=== PATIENT | female | born 1965 | race American Indian/Alaskan Native ===

== ENCOUNTER 2018-04-29 20:17 | Emergency (ER) | payer SELFPAY ==
[2018-04-29] MEDS ORDERED: MOTRIN ONE (23:55)
[2018-04-29] MEDS ORDERED: MOTRIN PO ONE (23:57)
[2018-04-30] MEDS ORDERED: CLEOCIN IM ONE (00:07)
--- NOTE | 2018-04-30 00:19 | Emergency Department Report ---
ED ENT HPI - General Chief complaint: Dental/Oral Stated complaint: TOOTHACHE Time Seen by Provider: 04/29/18 23:57 Source: patient Mode of arrival: Ambulatory Limitations: No Limitations - History of Present Illness Initial comments: This is a 52-year-old female nontoxic, well nourished in appearance, no acute signs of distress presents to the ED with c/o of left upper toothache years. Patient denies following up with a dentist. Patient denies any radiation of pain. Patient describes toothache as aching level of 8 out of 10. Patient denies any facial swelling. Patient denies any numbness, tingling, fever, chills, headache, stiff neck, abdominal pain, chest pain, shortness of breath. Patient denies any drug allergies or significant past medical history. MD complaint: tooth pain -: year(s) Location: tooth # 1 - pain here Severity scale (0 -10): 8 Quality: aching Consistency: constant Improves with: none Worsens with: none Context- Dental: history of dental caries, poor dental care Associated Symptoms: gum swelling, toothache. denies: fever, cough, pain with swallowing, sore throat, tinnitus, hearing loss, discharge from ear, rhinorrhea - Related Data Previous Rx's Medication Instructions Recorded Last Taken Type Fluticasone Propionate [Flonase] 2 sprays NS QDAY #1 spray 02/25/14 Unknown Rx Carvedilol [Coreg] 6.25 mg PO BID #60 tablet 01/29/15 Unknown Rx Ciprofloxacin HCl [Cipro] 250 mg PO BID #6 tablet 01/29/15 Unknown Rx Lisinopril [Zestril TAB] 10 mg PO BID #60 tablet 01/29/15 Unknown Rx Saccharomyces Boulardii [Florastor] 250 mg PO BID #14 capsule 01/29/15 Unknown Rx Acetaminophen/Codeine [Tylenol 1 tab PO Q6H PRN #12 tab 04/30/18 Unknown Rx /Codeine # 3 tab] Clindamycin [Clindamycin CAP] 300 mg PO Q8H #21 cap 04/30/18 Unknown Rx Ibuprofen [Motrin] 600 mg PO Q8H PRN #30 tablet 04/30/18 Unknown Rx Allergies Allergy/AdvReac Type Severity Reaction Status Date / Time iodine Allergy Shortness Verified 04/29/18 20:28 of Breath nuts Allergy Shortness Uncoded 02/25/14 17:44 of Breath seafood Allergy Shortness Uncoded 02/25/14 17:44 of Breath ED Dental HPI - General Chief complaint: Dental/Oral Stated complaint: TOOTHACHE Time Seen by Provider: 04/29/18 23:57 Source: patient Mode of arrival: Ambulatory Limitations: No Limitations - Related Data Previous Rx's Medication Instructions Recorded Last Taken Type Fluticasone Propionate [Flonase] 2 sprays NS QDAY #1 spray 02/25/14 Unknown Rx Carvedilol [Coreg] 6.25 mg PO BID #60 tablet 01/29/15 Unknown Rx Ciprofloxacin HCl [Cipro] 250 mg PO BID #6 tablet 01/29/15 Unknown Rx Lisinopril [Zestril TAB] 10 mg PO BID #60 tablet 01/29/15 Unknown Rx Saccharomyces Boulardii [Florastor] 250 mg PO BID #14 capsule 01/29/15 Unknown Rx Acetaminophen/Codeine [Tylenol 1 tab PO Q6H PRN #12 tab 04/30/18 Unknown Rx /Codeine # 3 tab] Clindamycin [Clindamycin CAP] 300 mg PO Q8H #21 cap 04/30/18 Unknown Rx Ibuprofen [Motrin] 600 mg PO Q8H PRN #30 tablet 04/30/18 Unknown Rx Allergies Allergy/AdvReac Type Severity Reaction Status Date / Time iodine Allergy Shortness Verified 04/29/18 20:28 of Breath nuts Allergy Shortness Uncoded 02/25/14 17:44 of Breath seafood Allergy Shortness Uncoded 02/25/14 17:44 of Breath ED Review of Systems ROS: Stated complaint: TOOTHACHE Other details as noted in HPI Constitutional: fever. denies: chills Eyes: denies: eye pain, eye discharge, vision change ENT: dental pain. denies: ear pain, throat pain Respiratory: denies: cough, shortness of breath, wheezing Cardiovascular: denies: chest pain, palpitations Endocrine: no symptoms reported Gastrointestinal: denies: abdominal pain, nausea, diarrhea Genitourinary: denies: urgency, dysuria, discharge Musculoskeletal: denies: back pain, joint swelling, arthralgia Skin: denies: rash, lesions Neurological: denies: headache, weakness, paresthesias Psychiatric: denies: anxiety, depression Hematological/Lymphatic: denies: easy bleeding, easy bruising ED Past Medical Hx - Past Medical History Previous Medical History?: Yes Hx Hypertension: Yes - Surgical History Past Surgical History?: No - Social History Smoking Status: Never Smoker Substance Use Type: Alcohol - Medications Home Medications: Home Medications Medication Instructions Recorded Confirmed Last Taken Type Fluticasone Propionate [Flonase] 2 sprays NS QDAY #1 spray 02/25/14 01/28/15 Unknown Rx Carvedilol [Coreg] 6.25 mg PO BID #60 tablet 01/29/15 Unknown Rx Ciprofloxacin HCl [Cipro] 250 mg PO BID #6 tablet 01/29/15 Unknown Rx Lisinopril [Zestril TAB] 10 mg PO BID #60 tablet 01/29/15 Unknown Rx Saccharomyces Boulardii [Florastor] 250 mg PO BID #14 capsule 01/29/15 Unknown Rx Acetaminophen/Codeine [Tylenol 1 tab PO Q6H PRN #12 tab 04/30/18 Unknown Rx /Codeine # 3 tab] Clindamycin [Clindamycin CAP] 300 mg PO Q8H #21 cap 04/30/18 Unknown Rx Ibuprofen [Motrin] 600 mg PO Q8H PRN #30 tablet 04/30/18 Unknown Rx ED Physical Exam - General Limitations: No Limitations General appearance: alert, in no apparent distress - Head Head exam: Present: atraumatic, normocephalic - Eye Eye exam: Present: normal appearance Pupils: Present: normal accommodation - ENT ENT exam: Present: mucous membranes moist, TM's normal bilaterally, normal external ear exam - Expanded ENT Exam Expanded Ear exam: Present: normal external inspection Mouth exam: Present: normal external inspection, tongue normal. Absent: drooling, trismus, muffled voice, tongue elevation, laceration Teeth exam: Present: dental caries, fractured tooth #, dental tenderness #, gingival enlargement, other (no facial swelling. ) Throat exam: Positive: normal inspection, other (Uvula midline. No abscess or sweling noted.). Negative: tonsillar erythema, tonsillomegaly, tonsillar exudate, R peritonsillar mass, L peritonsillar mass - Neck Neck exam: Present: normal inspection, full ROM. Absent: tenderness, meningismus, lymphadenopathy - Respiratory Respiratory exam: Present: normal lung sounds bilaterally. Absent: respiratory distress - Cardiovascular Cardiovascular Exam: Present: regular rate, normal rhythm. Absent: systolic murmur, diastolic murmur, rubs, gallop - GI/Abdominal GI/Abdominal exam: Present: soft, normal bowel sounds - Extremities Exam Extremities exam: Present: normal inspection - Back Exam Back exam: Present: normal inspection - Neurological Exam Neurological exam: Present: alert, oriented X3 - Psychiatric Psychiatric exam: Present: normal affect, normal mood - Skin Skin exam: Present: warm, dry, intact, normal color. Absent: rash ED Course Vital Signs 04/29/18 04/29/18 04/30/18 20:16 20:28 00:01 Temperature 101.2 F H 101.2 F H Pulse Rate 114 H 114 H Respiratory 18 18 18 Rate Blood Pressure 152/90 152/90 O2 Sat by Pulse 98 98 Oximetry - Reevaluation(s) Reevaluation #1: 04/30/18 00:18 Patient is speaking in full sentences with no signs of distress noted. ED Medical Decision Making - Medical Decision Making This is a 52-year-old female that presents with gingivitis and dental caries. Patient is stable and was examined by me. There is no swelling to the face. I did give patient clindamycin 600 mg IM in the ED and patient is discharged with clindamycin. Patient also received Motrin in the ED for fever. Vitals signs stable prior to discharge. She had strict instructions to follow-up with oral maxillary surgeon in 24 hours or if symptoms would worsen to return to emergency room as was possible. Patient is discharged with Tylenol with Codeine , Peridex and Clinda. Patient was instructed not to operate any machinery when taking Ultram due to drowsiness. At time of discharge, the patient does not seem toxic or ill in appearance. No acute signs of distress noted. Patient agrees to discharge treatment plan of care. No further questions noted by the patient. Critical care attestation.: If time is entered above; I have spent that time in minutes in the direct care of this critically ill patient, excluding procedure time. ED Disposition Clinical Impression: Dental caries, Gingivitis Disposition: DC- TO HOME OR SELFCARE Is pt being admited?: No Does the pt Need Aspirin: No Condition: Stable Instructions: Dental Caries (ED), Gingivitis (ED), Acetaminophen/Codeine (By mouth) Additional Instructions: Follow-up with a oral maxillary surgeon in 24 hours or if symptoms worsen and continue return to emergency room as soon as possible. [facility] [employer] Address: [facility] [address], [place] [address] Hours: Thursday 7APM Thursday Closed Thursday Closed Thursday 8AM1PM, 25PM Thursday 8AM1PM, 25PM Thursday (05 of May) 8AM1PM, 25PM Hours might differ 8AM1PM, 25PM Prescriptions: Acetaminophen/Codeine [Tylenol /Codeine # 3 tab] 1 tab PO Q6H PRN #12 tab PRN Reason: Pain , Severe (7-10) Clindamycin [Clindamycin CAP] 300 mg PO Q8H #21 cap Ibuprofen [Motrin] 600 mg PO Q8H PRN #30 tablet PRN Reason: Pain Referrals: CHOLO MAE MD [Primary Care Provider] - 3-5 Days PRIMARY CARE, [Referring] - 3-[address] [facility] [Outside] - 3-5 Days Forms: Work/School Release Form(ED)
[2018-04-30 01:46] VITALS: BP 144/78
== END 2018-04-30 02:13 | disposition home or self-care (01) ==
LOC: ED 20:17
DX: K02.9 Dental caries, unspecified (principal); K05.10 Chronic gingivitis, plaque induced; I10 Essential (primary) hypertension; Z91.041 Radiographic dye allergy status; Z91.018 Allergy to other foods; Z91.013 Allergy to seafood
CPT/HCPCS: 96372; 99282

== ENCOUNTER 2019-12-09 08:53 | Emergency (ER) | payer SELFPAY ==
[2019-12-09 09:36] LABS: Basophils # (Auto) 0.1 K/mm3 (0.0-0.1); Eosinophils # (Auto) 0.2 K/mm3 (0.0-0.4); Eosinophils % (Auto) 3.3 % (0.0-4.3); Hematocrit 38.3 % (30.3-42.9); Hemoglobin 13.1 gm/dl (10.1-14.3); Lymphocytes # (Auto) 2.9 K/mm3 (1.2-5.4); Lymphocytes % (Auto) 44.1 % (13.4-35.0); Mean Corpuscular HGB Conc 34 % (30-34); Mean Corpuscular Volume 86 fl (79-97); Monocytes # (Auto) 0.4 K/mm3 (0.0-0.8); Monocytes % (Auto) 6.2 % (0.0-7.3); Platelet Count 380 K/mm3 (140-440); Red Blood Count 4.43 M/mm3 (3.65-5.03); Red Cell Distribution Width 13.2 % (13.2-15.2)
[2019-12-09 09:48] LABS: Bilirubin,Urine NEG (Negative); Blood,Urine SM (Negative); Color,Urine Yellow (Yellow); Urobilinogen,Urine < 2.0 mg/dL (<2.0)
[2019-12-09 09:49] LABS: WBC,Urine > 182.0 /HPF (0.0-6.0)
[2019-12-09 10:01] LABS: Alanine Aminotransferase 26 units/L (7-56); Albumin 4.2 g/dL (3.9-5); BUN/Creatinine Ratio 20; Blood Urea Nitrogen 12 mg/dL (7-17); Calcium 9.6 mg/dL (8.4-10.2); Hemolysis Index 6
[2019-12-09 10:04] VITALS: BP 159/85
--- NOTE | 2019-12-09 10:40 | Emergency Department Report ---
ED Female HPI - General Chief complaint: Abdominal Pain Stated complaint: UTI Time Seen by Provider: 12/09/19 10:21 Source: patient Mode of arrival: Ambulatory Limitations: No Limitations - History of Present Illness MD Complaint: dysuria -: days(s) (5-6) Location: suprapubic Radiation: suprapubic Severity: mild Quality: dull (pressure) Worsens with: urination Are you Now?: No Associated Symptoms: dysuria, other (increased urinary urgency production) - Related Data Sexually active: No Previous Rx's Medication Instructions Recorded Last Taken Type Fluticasone Propionate [Flonase] 2 sprays NS QDAY #1 spray 02/25/14 Unknown Rx Ciprofloxacin HCl [Cipro] 250 mg PO BID #6 tablet 01/29/15 Unknown Rx Saccharomyces Boulardii [Florastor] 250 mg PO BID #14 capsule 01/29/15 Unknown Rx carvediloL [Coreg] 6.25 mg PO BID #60 tablet 01/29/15 Unknown Rx lisinopriL [Zestril TAB] 10 mg PO BID #60 tablet 01/29/15 Unknown Rx Acetaminophen/Codeine [Tylenol 1 tab PO Q6H PRN #12 tab 04/30/18 Unknown Rx /Codeine # 3 tab] Amoxicillin 500 mg PO TID 10 Days #30 capsule 04/30/18 Unknown Rx Clindamycin [Clindamycin CAP] 300 mg PO Q8H #21 cap 04/30/18 Unknown Rx Ibuprofen [Motrin] 600 mg PO Q8H PRN #30 tablet 04/30/18 Unknown Rx Sulfamethoxazole/Trimethoprim 1 each PO BID #14 tablet 12/09/19 Unknown Rx [Bactrim DS TAB] Allergies Allergy/AdvReac Type Severity Reaction Status Date / Time iodine Allergy Shortness Verified 04/29/18 20:28 of Breath nuts Allergy Shortness Uncoded 02/25/14 17:44 of Breath seafood Allergy Shortness Uncoded 02/25/14 17:44 of Breath ED Review of Systems ROS: Stated complaint: UTI Other details as noted in HPI Comment: All other systems reviewed and negative ED Past Medical Hx - Past Medical History Previous Medical History?: Yes Hx Hypertension: Yes - Surgical History Past Surgical History?: No - Social History Smoking Status: Unknown if ever smoked Substance Use Type: None - Medications Home Medications: Home Medications Medication Instructions Recorded Confirmed Last Taken Type Fluticasone Propionate [Flonase] 2 sprays NS QDAY #1 spray 02/25/14 01/28/15 Unknown Rx Ciprofloxacin HCl [Cipro] 250 mg PO BID #6 tablet 01/29/15 Unknown Rx Saccharomyces Boulardii [Florastor] 250 mg PO BID #14 capsule 01/29/15 Unknown Rx carvediloL [Coreg] 6.25 mg PO BID #60 tablet 01/29/15 Unknown Rx lisinopriL [Zestril TAB] 10 mg PO BID #60 tablet 01/29/15 Unknown Rx Acetaminophen/Codeine [Tylenol 1 tab PO Q6H PRN #12 tab 04/30/18 Unknown Rx /Codeine # 3 tab] Amoxicillin 500 mg PO TID 10 Days #30 capsule 04/30/18 Unknown Rx Clindamycin [Clindamycin CAP] 300 mg PO Q8H #21 cap 04/30/18 Unknown Rx Ibuprofen [Motrin] 600 mg PO Q8H PRN #30 tablet 04/30/18 Unknown Rx Sulfamethoxazole/Trimethoprim 1 each PO BID #14 tablet 12/09/19 Unknown Rx [Bactrim DS TAB] ED Physical Exam - General Limitations: No Limitations General appearance: alert, in no apparent distress - Head Head exam: Present: atraumatic, normocephalic - Eye Eye exam: Present: normal appearance - ENT ENT exam: Present: mucous membranes moist - Neck Neck exam: Present: normal inspection - Respiratory Respiratory exam: Present: normal lung sounds bilaterally. Absent: respiratory distress - Cardiovascular Cardiovascular Exam: Present: regular rate, normal rhythm. Absent: systolic murmur, diastolic murmur, rubs, gallop - GI/Abdominal GI/Abdominal exam: Present: soft, normal bowel sounds - Extremities Exam Extremities exam: Present: normal inspection - Back Exam Back exam: Present: normal inspection - Neurological Exam Neurological exam: Present: alert, oriented X3 - Psychiatric Psychiatric exam: Present: normal affect, normal mood - Skin Skin exam: Present: warm, dry, intact, normal color. Absent: rash ED Course Vital Signs 12/09/19 12/09/19 09:00 10:01 Temperature 97.7 F Pulse Rate 96 H 91 H Respiratory 16 16 Rate Blood Pressure 146/82 159/85 Blood Pressure 159/85 [Right] O2 Sat by Pulse 98 100 Oximetry ED Medical Decision Making - Lab Data Result diagrams: 12/09/19 09:18 12/09/19 09:18 - Medical Decision Making This 54 y/o female patient presents with symptoms consistent with acute uncomplicated cystitis. No systemic symptoms. Not septic. Well appearing. Low suspicion for acute pyelonephritis given lack of fever, CVAT, or systemic features. Low suspicion for kidney stone or infected stone. ; not consistent with , including ectopic. No indication for labs or imaging at this time. Plan: UA, UCx, antibiotics Critical care attestation.: If time is entered above; I have spent that time in minutes in the direct care of this critically ill patient, excluding procedure time. ED Disposition Clinical Impression: UTI (urinary tract infection) Disposition: DC-01 TO HOME OR SELFCARE Is pt being admited?: No Does the pt Need Aspirin: No Condition: Stable Instructions: Abdominal Pain (ED), Urinary Tract Infection in Women (ED), Dysuria (ED) Prescriptions: Sulfamethoxazole/Trimethoprim [Bactrim DS TAB] 1 each PO BID #14 tablet Referrals: PRIMARY CARE [Primary Care Provider] - 3-5 Days [facility] [Provider Group] - 3-5 Days
== END 2019-12-09 10:57 | disposition home or self-care (01) ==
LOC: ED 08:53
DX: N39.0 Urinary tract infection, site not specified (principal); I10 Essential (primary) hypertension
CPT/HCPCS: 36415; 80053; 81001; 85025; 99283

== ENCOUNTER 2020-07-15 08:51 | Emergency (ER) | payer SELFPAY ==
[2020-07-15 10:03] VITALS: BP 107/83
--- NOTE | 2020-07-15 10:08 | Emergency Department Report ---
ED Recheck HPI - General Chief Complaint: Medical Clearance Stated Complaint: HEADACHE, BP HIGH Time Seen by Provider: 07/15/20 09:08 Source: patient Mode of arrival: Ambulatory Limitations: No Limitations - History of Present Illness Initial Comments: This is a 55-year-old female nontoxic, well nourished in appearance, no acute signs of distress presents to the ED for blood pressure medication refill. Patient stated that this morning she woke up and had a slight headache and took her blood pressure that was elevated. Patient stated currently headache has resolved. Patient stated that she takes lisinopril/HCTZ 2025 milligrams and has been out of it for the past couple days. Patient denies any head trauma. Patient denies any visual changes. Patient denies any symptoms of headache. Patient denies any numbness, tingling, fever, chills, nausea, vomiting, chest pain, shortness of breath, stiff neck. Patient denies facial drooping or one s ided weakness. Patient denies any radiation of pain. Patient denies any allergies. -: days(s) Returns Today for: request for prescription Symptoms Since Prior Visit: no new symptoms, improved Associated Symptoms: none. denies: fever, chills, chest pain, shortness of breath, rash, malaise, [place], abdominal pain - Related Data Previous Rx's Medication Instructions Recorded Last Taken Type Fluticasone Propionate [Flonase] 2 sprays NS QDAY #1 spray 02/25/14 Unknown Rx Ciprofloxacin HCl [Cipro] 250 mg PO BID #6 tablet 01/29/15 Unknown Rx Saccharomyces Boulardii [Florastor] 250 mg PO BID #14 capsule 01/29/15 Unknown Rx carvediloL [Coreg] 6.25 mg PO BID #60 tablet 01/29/15 Unknown Rx lisinopriL [Zestril TAB] 10 mg PO BID #60 tablet 01/29/15 Unknown Rx Acetaminophen/Codeine [Tylenol 1 tab PO Q6H PRN #12 tab 04/30/18 Unknown Rx /Codeine # 3 tab] Amoxicillin 500 mg PO TID 10 Days #30 capsule 04/30/18 Unknown Rx Clindamycin [Clindamycin CAP] 300 mg PO Q8H #21 cap 04/30/18 Unknown Rx Ibuprofen [Motrin] 600 mg PO Q8H PRN #30 tablet 04/30/18 Unknown Rx Sulfamethoxazole/Trimethoprim 1 each PO BID #14 tablet 12/09/19 Unknown Rx [Bactrim DS TAB] Lisinopril/Hydrochlorothiazide 1 tab PO QDAY #30 tab 07/15/20 Unknown Rx [Zestoretic 20-25 mg] Allergies Allergy/AdvReac Type Severity Reaction Status Date / Time iodine Allergy Shortness Verified 04/29/18 20:28 of Breath nuts Allergy Shortness Uncoded 02/25/14 17:44 of Breath seafood Allergy Shortness Uncoded 02/25/14 17:44 of Breath ED Review of Systems ROS: Stated complaint: HEADACHE, BP HIGH Other details as noted in HPI Constitutional: denies: chills, fever Eyes: denies: eye pain, eye discharge, vision change ENT: denies: ear pain, throat pain Respiratory: denies: cough, shortness of breath, wheezing Cardiovascular: denies: chest pain, palpitations Endocrine: no symptoms reported Gastrointestinal: denies: abdominal pain, nausea, diarrhea Genitourinary: denies: urgency, dysuria, discharge Musculoskeletal: denies: back pain, joint swelling, arthralgia Skin: denies: rash, lesions Neurological: denies: headache, weakness, paresthesias Psychiatric: denies: anxiety, depression Hematological/Lymphatic: denies: easy bleeding, easy bruising ED Past Medical Hx - Past Medical History Previous Medical History?: Yes Hx Hypertension: Yes - Surgical History Past Surgical History?: No - Social History Smoking Status: Unknown if ever smoked Substance Use Type: None - Medications Home Medications: Home Medications Medication Instructions Recorded Confirmed Last Taken Type Fluticasone Propionate [Flonase] 2 sprays NS QDAY #1 spray 02/25/14 01/28/15 Unknown Rx Ciprofloxacin HCl [Cipro] 250 mg PO BID #6 tablet 01/29/15 Unknown Rx Saccharomyces Boulardii [Florastor] 250 mg PO BID #14 capsule 01/29/15 Unknown Rx carvediloL [Coreg] 6.25 mg PO BID #60 tablet 01/29/15 Unknown Rx lisinopriL [Zestril TAB] 10 mg PO BID #60 tablet 01/29/15 Unknown Rx Acetaminophen/Codeine [Tylenol 1 tab PO Q6H PRN #12 tab 04/30/18 Unknown Rx /Codeine # 3 tab] Amoxicillin 500 mg PO TID 10 Days #30 capsule 04/30/18 Unknown Rx Clindamycin [Clindamycin CAP] 300 mg PO Q8H #21 cap 04/30/18 Unknown Rx Ibuprofen [Motrin] 600 mg PO Q8H PRN #30 tablet 04/30/18 Unknown Rx Sulfamethoxazole/Trimethoprim 1 each PO BID #14 tablet 12/09/19 Unknown Rx [Bactrim DS TAB] Lisinopril/Hydrochlorothiazide 1 tab PO QDAY #30 tab 07/15/20 Unknown Rx [Zestoretic 20-25 mg] ED Physical Exam - General Limitations: No Limitations General appearance: alert, in no apparent distress - Head Head exam: Present: atraumatic, normocephalic - Eye Eye exam: Present: normal appearance, PERRL, EOMI - Neck Neck exam: Present: normal inspection, full ROM. Absent: tenderness, meningismus, lymphadenopathy - Respiratory Respiratory exam: Present: normal lung sounds bilaterally. Absent: respiratory distress, wheezes, rales, rhonchi, stridor, chest wall tenderness, accessory muscle use, decreased breath sounds, prolonged expiratory - Cardiovascular Cardiovascular Exam: Present: regular rate, normal rhythm, normal heart sounds. Absent: bradycardia, tachycardia, irregular rhythm, systolic murmur, diastolic murmur, rubs, gallop - Extremities Exam Extremities exam: Present: normal inspection, full ROM - Back Exam Back exam: Present: normal inspection, full ROM. Absent: tenderness, CVA tenderness (R), CVA tenderness (L), muscle spasm, paraspinal tenderness, vertebral tenderness, rash noted - Neurological Exam Neurological exam: Present: alert, oriented X3, normal gait - Expanded Neurological Exam Expanded Patient oriented to: Present: person, place, time Cranial nerves: EOM's Intact: Normal, Facial Sensation: Normal Cerebellar function: Finger to Nose: Normal Upper motor neuron: Pronator Drift: Normal, Sensory Extinction: Normal Motor strength exam: RUE: 5, LUE: 5, RLE: 5, LLE: 5 Best Eye Response (Ceci): (4) open spontaneously Best Motor Response ([place]): (6) obeys commands Best Verbal Response (Ceci): (5) oriented [place] Total: 15 - Psychiatric Psychiatric exam: Present: normal affect, normal mood - Skin Skin exam: Present: warm, dry, intact, normal color. Absent: rash ED Course Vital Signs 07/15/20 10:02 Temperature 98.3 F Pulse Rate 92 H Respiratory 20 Rate Blood Pressure 107/83 [Right] O2 Sat by Pulse 100 Oximetry - Reevaluation(s) Reevaluation #1: 07/15/20 10:06 Patient is speaking in full sentences with no signs of distress noted. ED Recheck MDM - Medical Decision Making 55-year female that presents with blood pressure medication refill. Patient is stable and was examined by me. Vital signs are stable. Patient is neurologically stable. Patient was instructed to follow-up with a primary care doctor in 3-5 days or if symptoms worsen and continue return to emergency room as soon as possible. At time of discharge, the patient does not seem toxic or ill in appearance. No acute signs of distress noted. Patient agrees to discharge treatment plan of care. No further questions noted by the patient. Critical care attestation.: If time is entered above; I have spent that time in minutes in the direct care of this critically ill patient, excluding procedure time. ED Disposition Clinical Impression: Encounter for medication refill Disposition: DC-01 TO HOME OR SELFCARE Is pt being admited?: No Does the pt Need Aspirin: No Condition: Stable Instructions: Chronic Hypertension (ED) Additional Instructions: Follow-up with a primary care doctor in 3-5 days or if symptoms worsen and continue return to emergency room as soon as possible. Prescriptions: Lisinopril/Hydrochlorothiazide [Zestoretic 20-25 mg] 1 tab PO QDAY #30 tab Referrals: ELGIN POTTER MD [Primary Care Provider] - 3-5 Days YUE HOWARD MD [Staff Physician] - 3-5 Days Time of Disposition: 10:08
== END 2020-07-15 10:08 | disposition home or self-care (01) ==
LOC: ED 08:51
DX: R51 Headache (principal); I10 Essential (primary) hypertension; Z79.1 Long term (current) use of non-steroidal anti-inflammatories (NSAID); Z79.2 Long term (current) use of antibiotics; Z79.899 Other long term (current) drug therapy; Z91.018 Allergy to other foods; Z91.013 Allergy to seafood; Z88.8 Allergy status to other drugs, medicaments and biological substances
CPT/HCPCS: 99282

== ENCOUNTER 2020-09-03 09:17 | Emergency (ER) | payer SELFPAY ==
[2020-09-03 10:35] VITALS: BP 171/87
--- NOTE | 2020-09-03 10:49 | Emergency Department Report ---
ED General Adult HPI - General Chief complaint: Headache Stated complaint: HEADACHE/NO BP MEDS Time Seen by Provider: 09/03/20 10:25 Source: patient Mode of arrival: Ambulatory Limitations: No Limitations - History of Present Illness Initial comments: 55-year-old female, history of hypertension, presents to ED with headache. Patient states she ran out of her BP meds 1 week ago. States she is here visiting family from out of town. Patient states she awoke with a headache, took 2 Tylenol, now headache is resolved. Patient is requesting medication refill. She denies any chest pain, shortness of breath, dizziness, neuro deficits. -: This morning Location: head Quality: aching Consistency: now resolved Improves with: medication (tylenol) Worsens with: none Associated Symptoms: headaches. denies: chest pain, nausea/vomiting, shortness of breath - Related Data Previous Rx's Medication Instructions Recorded Last Taken Type Fluticasone Propionate [Flonase] 2 sprays NS QDAY #1 spray 02/25/14 Unknown Rx Ciprofloxacin HCl [Cipro] 250 mg PO BID #6 tablet 01/29/15 Unknown Rx Saccharomyces Boulardii [Florastor] 250 mg PO BID #14 capsule 01/29/15 Unknown Rx carvediloL [Coreg] 6.25 mg PO BID #60 tablet 01/29/15 Unknown Rx lisinopriL [Zestril TAB] 10 mg PO BID #60 tablet 01/29/15 Unknown Rx Acetaminophen/Codeine [Tylenol 1 tab PO Q6H PRN #12 tab 04/30/18 Unknown Rx /Codeine # 3 tab] Amoxicillin 500 mg PO TID 10 Days #30 capsule 04/30/18 Unknown Rx Clindamycin [Clindamycin CAP] 300 mg PO Q8H #21 cap 04/30/18 Unknown Rx Ibuprofen [Motrin] 600 mg PO Q8H PRN #30 tablet 04/30/18 Unknown Rx Sulfamethoxazole/Trimethoprim 1 each PO BID #14 tablet 12/09/19 Unknown Rx [Bactrim DS TAB] Lisinopril/Hydrochlorothiazide 1 tab PO QDAY #30 tab 07/15/20 Unknown Rx [Zestoretic 20-25 mg] Lisinopril/Hydrochlorothiazide 1 tab PO QDAY #30 tab 09/03/20 Unknown Rx [Zestoretic 20-25 mg] Allergies Allergy/AdvReac Type Severity Reaction Status Date / Time iodine Allergy Shortness Verified 04/29/18 20:28 of Breath nuts Allergy Shortness Uncoded 02/25/14 17:44 of Breath seafood Allergy Shortness Uncoded 02/25/14 17:44 of Breath ED Review of Systems ROS: Stated complaint: HEADACHE/NO BP MEDS Other details as noted in HPI Comment: All other systems reviewed and negative Respiratory: denies: shortness of breath Cardiovascular: denies: chest pain Gastrointestinal: denies: nausea, vomiting Neurological: headache. denies: weakness, numbness ED Past Medical Hx - Past Medical History Previous Medical History?: Yes Hx Hypertension: Yes - Surgical History Past Surgical History?: No - Social History Smoking Status: Never Smoker - Medications Home Medications: Home Medications Medication Instructions Recorded Confirmed Last Taken Type Fluticasone Propionate [Flonase] 2 sprays NS QDAY #1 spray 02/25/14 01/28/15 Unknown Rx Ciprofloxacin HCl [Cipro] 250 mg PO BID #6 tablet 01/29/15 Unknown Rx Saccharomyces Boulardii [Florastor] 250 mg PO BID #14 capsule 01/29/15 Unknown Rx carvediloL [Coreg] 6.25 mg PO BID #60 tablet 01/29/15 Unknown Rx lisinopriL [Zestril TAB] 10 mg PO BID #60 tablet 01/29/15 Unknown Rx Acetaminophen/Codeine [Tylenol 1 tab PO Q6H PRN #12 tab 04/30/18 Unknown Rx /Codeine # 3 tab] Amoxicillin 500 mg PO TID 10 Days #30 capsule 04/30/18 Unknown Rx Clindamycin [Clindamycin CAP] 300 mg PO Q8H #21 cap 04/30/18 Unknown Rx Ibuprofen [Motrin] 600 mg PO Q8H PRN #30 tablet 04/30/18 Unknown Rx Sulfamethoxazole/Trimethoprim 1 each PO BID #14 tablet 12/09/19 Unknown Rx [Bactrim DS TAB] Lisinopril/Hydrochlorothiazide 1 tab PO QDAY #30 tab 07/15/20 Unknown Rx [Zestoretic 20-25 mg] Lisinopril/Hydrochlorothiazide 1 tab PO QDAY #30 tab 09/03/20 Unknown Rx [Zestoretic 20-25 mg] ED Physical Exam - General Limitations: No Limitations General appearance: alert, in no apparent distress - Head Head exam: Present: atraumatic, normocephalic - Eye Eye exam: Present: normal appearance, EOMI - ENT ENT exam: Present: mucous membranes moist - Neck Neck exam: Present: normal inspection - Respiratory Respiratory exam: Present: normal lung sounds bilaterally. Absent: respiratory distress - Cardiovascular Cardiovascular Exam: Present: regular rate, normal rhythm - GI/Abdominal GI/Abdominal exam: Present: soft. Absent: distended, tenderness - Extremities Exam Extremities exam: Present: normal inspection - Neurological Exam Neurological exam: Present: alert, oriented X3, CN II-XII intact. Absent: motor sensory deficit - Psychiatric Psychiatric exam: Present: normal affect, normal mood - Skin Skin exam: Present: warm, dry, intact, normal color ED Course Vital Signs 09/03/20 09/03/20 09:39 10:34 Temperature 98 F Pulse Rate 90 89 Respiratory 16 18 Rate Blood Pressure 174/85 171/87 [Right] O2 Sat by Pulse 100 98 Oximetry Critical care attestation.: If time is entered above; I have spent that time in minutes in the direct care of this critically ill patient, excluding procedure time. ED Disposition Clinical Impression: Uncontrolled hypertension, Medication refill Disposition: DC-01 TO HOME OR SELFCARE Is pt being admited?: No Condition: Stable Instructions: Hypertension (ED) Prescriptions: Lisinopril/Hydrochlorothiazide [Zestoretic 20-25 mg] 1 tab PO QDAY #30 tab Referrals: PRIMARY CARE, [Primary Care Provider] - 3-5 Days Time of Disposition: 10:46
== END 2020-09-03 11:00 | disposition home or self-care (01) ==
LOC: ED 09:17
DX: I10 Essential (primary) hypertension (principal); Z76.0 Encounter for issue of repeat prescription; Z91.018 Allergy to other foods; Z91.09 Other allergy status, other than to drugs and biological substances
CPT/HCPCS: 99281

== ENCOUNTER 2021-01-22 10:18 | Emergency (ER) | payer SELFPAY ==
[2021-01-22 10:38] VITALS: BP 166/78
--- NOTE | 2021-01-22 11:26 | Emergency Department Report ---
ED General Adult HPI - General Chief complaint: Dental/Oral Stated complaint: RT SIDE FACE SWOLLEN/TOOTHACHE Time Seen by Provider: 01/22/21 10:56 Source: patient Mode of arrival: Ambulatory Limitations: No Limitations - History of Present Illness Initial comments: Patient complains of right lower dental pain and facial swelling x2 days. She denies any difficulty opening her jaw, dysphagia, or fever/chills/sweats. Patient states she has an appointment with a dental specialist in the next few days. - Related Data Previous Rx's Medication Instructions Recorded Last Taken Type Fluticasone Propionate [Flonase] 2 sprays NS QDAY #1 spray 02/25/14 Unknown Rx Ciprofloxacin HCl [Cipro] 250 mg PO BID #6 tablet 01/29/15 Unknown Rx Saccharomyces Boulardii [Florastor] 250 mg PO BID #14 capsule 01/29/15 Unknown Rx carvediloL [Coreg] 6.25 mg PO BID #60 tablet 01/29/15 Unknown Rx lisinopriL [Zestril TAB] 10 mg PO BID #60 tablet 01/29/15 Unknown Rx Acetaminophen/Codeine [Tylenol 1 tab PO Q6H PRN #12 tab 04/30/18 Unknown Rx /Codeine # 3 tab] Amoxicillin 500 mg PO TID 10 Days #30 capsule 04/30/18 Unknown Rx Clindamycin [Clindamycin CAP] 300 mg PO Q8H #21 cap 04/30/18 Unknown Rx Ibuprofen [Motrin] 600 mg PO Q8H PRN #30 tablet 04/30/18 Unknown Rx Sulfamethoxazole/Trimethoprim 1 each PO BID #14 tablet 12/09/19 Unknown Rx [Bactrim DS TAB] Lisinopril/Hydrochlorothiazide 1 tab PO QDAY #30 tab 07/15/20 Unknown Rx [Zestoretic 20-25 mg] Lisinopril/Hydrochlorothiazide 1 tab PO QDAY #30 tab 09/03/20 Unknown Rx [Zestoretic 20-25 mg] Acetaminophen/Codeine [Tylenol 1 tab PO Q8H PRN #8 tab 01/22/21 Unknown Rx /Codeine # 3 tab] Clindamycin [Clindamycin CAP] 300 mg PO Q6H 10 Days #40 capsule 01/22/21 Unknown Rx Ibuprofen [Motrin 800 MG tab] 800 mg PO Q8HR PRN #20 tablet 01/22/21 Unknown Rx Allergies Allergy/AdvReac Type Severity Reaction Status Date / Time iodine Allergy Shortness Verified 04/29/18 20:28 of Breath nuts Allergy Shortness Uncoded 02/25/14 17:44 of Breath seafood Allergy Shortness Uncoded 02/25/14 17:44 of Breath ED Review of Systems ROS: Stated complaint: RT SIDE FACE SWOLLEN/TOOTHACHE Other details as noted in HPI Constitutional: denies: chills, fever, malaise ENT: dental pain. denies: throat pain Respiratory: denies: cough, shortness of breath Musculoskeletal: denies: arthralgia Skin: denies: lesions, change in color Hematological/Lymphatic: denies: swollen glands ED Past Medical Hx - Past Medical History Hx Hypertension: Yes - Social History Smoking Status: Never Smoker Substance Use Type: None - Medications Home Medications: Home Medications Medication Instructions Recorded Confirmed Last Taken Type Fluticasone Propionate [Flonase] 2 sprays NS QDAY #1 spray 02/25/14 01/28/15 Unknown Rx Ciprofloxacin HCl [Cipro] 250 mg PO BID #6 tablet 01/29/15 Unknown Rx Saccharomyces Boulardii [Florastor] 250 mg PO BID #14 capsule 01/29/15 Unknown Rx carvediloL [Coreg] 6.25 mg PO BID #60 tablet 01/29/15 Unknown Rx lisinopriL [Zestril TAB] 10 mg PO BID #60 tablet 01/29/15 Unknown Rx Acetaminophen/Codeine [Tylenol 1 tab PO Q6H PRN #12 tab 04/30/18 Unknown Rx /Codeine # 3 tab] Amoxicillin 500 mg PO TID 10 Days #30 capsule 04/30/18 Unknown Rx Clindamycin [Clindamycin CAP] 300 mg PO Q8H #21 cap 04/30/18 Unknown Rx Ibuprofen [Motrin] 600 mg PO Q8H PRN #30 tablet 04/30/18 Unknown Rx Sulfamethoxazole/Trimethoprim 1 each PO BID #14 tablet 12/09/19 Unknown Rx [Bactrim DS TAB] Lisinopril/Hydrochlorothiazide 1 tab PO QDAY #30 tab 07/15/20 Unknown Rx [Zestoretic 20-25 mg] Lisinopril/Hydrochlorothiazide 1 tab PO QDAY #30 tab 09/03/20 Unknown Rx [Zestoretic 20-25 mg] Acetaminophen/Codeine [Tylenol 1 tab PO Q8H PRN #8 tab 01/22/21 Unknown Rx /Codeine # 3 tab] Clindamycin [Clindamycin CAP] 300 mg PO Q6H 10 Days #40 capsule 01/22/21 Unknown Rx Ibuprofen [Motrin 800 MG tab] 800 mg PO Q8HR PRN #20 tablet 01/22/21 Unknown Rx ED Physical Exam - General Limitations: No Limitations General appearance: alert, in no apparent distress - Head Head exam: Present: atraumatic, normocephalic - Eye Eye exam: Present: normal appearance. Absent: scleral icterus - ENT ENT exam: Present: mucous membranes moist - Expanded ENT Exam Expanded Mouth exam: Present: tongue normal. Absent: drooling, trismus, muffled voice 1 - Dental Tenderness, Other (Erythema and swelling of the gums noted with overlying facial swelling to palpation; no cellulitic changes noted to cheek) Throat exam: Positive: normal inspection - Neck Neck exam: Present: normal inspection, full ROM. Absent: lymphadenopathy ED Course Vital Signs 01/22/21 10:34 Temperature 98.7 F Pulse Rate 94 H Respiratory 18 Rate Blood Pressure 166/78 O2 Sat by Pulse 98 Oximetry ED Medical Decision Making - Medical Decision Making Patient complains of right lower dental pain and facial swelling x2 days. She denies any difficulty opening her jaw, dysphagia, or fever/chills/sweats. Patient states she has an appointment with a dental specialist in the next few days. Patient to follow-up with dental specialist as scheduled. Prescription for clindamycin discussed signs and symptoms that should prompt immediate return to the emergency department in detail with patient who verbalizes understanding. She is well-appearing her vitals are stable. Patient is stable for discharge home Critical care attestation.: If time is entered above; I have spent that time in minutes in the direct care of this critically ill patient, excluding procedure time. ED Disposition Clinical Impression: Abscess, dental Disposition: DC-01 TO HOME OR SELFCARE Is pt being admited?: No Condition: Stable Instructions: Dental Abscess Additional Instructions: Please follow-up with a dental specialist from the list provided within 2 days Prescriptions: Clindamycin [Clindamycin CAP] 300 mg PO Q6H 10 Days #40 capsule Ibuprofen [Motrin 800 MG tab] 800 mg PO Q8HR PRN #20 tablet PRN Reason: Pain, Moderate (4-6) Acetaminophen/Codeine [Tylenol /Codeine # 3 tab] 1 tab PO Q8H PRN #8 tab PRN Reason: Pain , Severe (7-10) Referrals: PRIMARY CARE, [Primary Care Provider] - 3-5 Days
== END 2021-01-22 12:29 | disposition home or self-care (01) ==
LOC: ED 10:18
DX: K04.7 Periapical abscess without sinus (principal); I10 Essential (primary) hypertension; Z79.899 Other long term (current) drug therapy; Z91.013 Allergy to seafood; Z91.041 Radiographic dye allergy status
CPT/HCPCS: 99282

== ENCOUNTER 2021-06-26 09:16 | Emergency (ER) | payer SELFPAY ==
[2021-06-26] MEDS ORDERED: LORazepam 2 MG/ML VIAL ONE (09:20)
[2021-06-26 09:39] VITALS: BP 132/64
--- NOTE | 2021-06-26 10:47 | Emergency Department Report ---
ED Extremity Problem HPI - General Chief complaint: Extremity Injury, Lower Stated complaint: LEFT LEG PAIN Time Seen by Provider: 06/26/21 10:25 Source: patient Mode of arrival: Ambulatory Limitations: No Limitations - History of Present Illness Initial comments: 56-year-old female with a past medical history of hypertension presents to the ER today with complaint of pain to the posterior knee and left calf. Patient states that her symptoms started about 3 weeks ago. She states that she has not had any injury and denies any strenuous activity. She states that the pain sometimes radiates into her left hip. She states that she did have a bruise to her anterior left thigh but this has since resolved. She also reported mild swelling to behind the right knee but this has also improved. She reports increased pain with ambulation, weightbearing and movement of the knee. She denies any known history of arthritis or gout. She denies any prior history of PE or DVT. She also denies any risk factors for PE or DVT. She denies any chest pain or shortness of breath or any additional symptoms at this time. MD Complaint: extremity pain -: week(s) (3-4) Severity scale (0 -10): 6 - Related Data Previous Rx's Medication Instructions Recorded Last Taken Type Fluticasone Propionate [Flonase] 2 sprays NS QDAY #1 spray 02/25/14 Unknown Rx Ciprofloxacin HCl [Cipro] 250 mg PO BID #6 tablet 01/29/15 Unknown Rx Saccharomyces Boulardii [Florastor] 250 mg PO BID #14 capsule 01/29/15 Unknown Rx carvediloL [Coreg] 6.25 mg PO BID #60 tablet 01/29/15 Unknown Rx lisinopriL [Zestril TAB] 10 mg PO BID #60 tablet 01/29/15 Unknown Rx Acetaminophen/Codeine [Tylenol 1 tab PO Q6H PRN #12 tab 04/30/18 Unknown Rx /Codeine # 3 tab] Amoxicillin 500 mg PO TID 10 Days #30 capsule 04/30/18 Unknown Rx Clindamycin [Clindamycin CAP] 300 mg PO Q8H #21 cap 04/30/18 Unknown Rx Lisinopril/Hydrochlorothiazide 1 tab PO QDAY #30 tab 07/15/20 Unknown Rx [Zestoretic 20-25 mg] Lisinopril/Hydrochlorothiazide 1 tab PO QDAY #30 tab 11/02/20 Unknown Rx [Zestoretic 20-25 mg] Acetaminophen/Codeine [Tylenol 1 tab PO Q8H PRN #8 tab 01/22/21 Unknown Rx /Codeine # 3 tab] Clindamycin [Clindamycin CAP] 300 mg PO Q6H 10 Days #40 capsule 01/22/21 Unknown Rx Naproxen 500 mg PO BID #20 tablet 06/26/21 Unknown Rx Allergies Allergy/AdvReac Type Severity Reaction Status Date / Time iodine Allergy Shortness Verified 06/26/21 09:33 of Breath nuts Allergy Shortness Uncoded 02/25/14 17:44 of Breath seafood Allergy Shortness Uncoded 02/25/14 17:44 of Breath ED Review of Systems ROS: Stated complaint: LEFT LEG PAIN Other details as noted in HPI Comment: All other systems reviewed and negative Constitutional: denies: chills, fever Eyes: denies: eye pain, eye discharge, vision change ENT: denies: ear pain, throat pain, dental pain, hearing loss, epistaxis, congestion Respiratory: denies: cough, shortness of breath, SOB with exertion, SOB at rest, wheezing Cardiovascular: denies: chest pain, palpitations, dyspnea on exertion, edema, syncope, paroxysmal nocturnal dyspnea Gastrointestinal: denies: abdominal pain, nausea, vomiting, diarrhea, constipation, hematemesis, melena, hematochezia Musculoskeletal: arthralgia, other (left leg pain ) Skin: denies: rash, lesions, change in color, change in hair/nails, pruritus Neurological: denies: headache, weakness, numbness, paresthesias, confusion, abnormal gait, vertigo Psychiatric: denies: anxiety, depression, auditory hallucinations, visual hallucinations, homicidal thoughts, suicidal thoughts Hematological/Lymphatic: denies: easy bleeding, easy bruising ED Past Medical Hx - Past Medical History Hx Hypertension: Yes - Surgical History Past Surgical History?: No - Social History Smoking Status: Never Smoker Substance Use Type: None - Medications Home Medications: Home Medications Medication Instructions Recorded Confirmed Last Taken Type Fluticasone Propionate [Flonase] 2 sprays NS QDAY #1 spray 02/25/14 01/28/15 Unknown Rx Ciprofloxacin HCl [Cipro] 250 mg PO BID #6 tablet 01/29/15 Unknown Rx Saccharomyces Boulardii [Florastor] 250 mg PO BID #14 capsule 01/29/15 Unknown Rx carvediloL [Coreg] 6.25 mg PO BID #60 tablet 01/29/15 Unknown Rx lisinopriL [Zestril TAB] 10 mg PO BID #60 tablet 01/29/15 Unknown Rx Acetaminophen/Codeine [Tylenol 1 tab PO Q6H PRN #12 tab 04/30/18 Unknown Rx /Codeine # 3 tab] Amoxicillin 500 mg PO TID 10 Days #30 capsule 04/30/18 Unknown Rx Clindamycin [Clindamycin CAP] 300 mg PO Q8H #21 cap 04/30/18 Unknown Rx Lisinopril/Hydrochlorothiazide 1 tab PO QDAY #30 tab 07/15/20 Unknown Rx [Zestoretic 20-25 mg] Lisinopril/Hydrochlorothiazide 1 tab PO QDAY #30 tab 09/03/20 Unknown Rx [Zestoretic 20-25 mg] Acetaminophen/Codeine [Tylenol 1 tab PO Q8H PRN #8 tab 01/22/21 Unknown Rx /Codeine # 3 tab] Clindamycin [Clindamycin CAP] 300 mg PO Q6H 10 Days #40 capsule 01/22/21 Unknown Rx Naproxen 500 mg PO BID #20 tablet 06/26/21 Unknown Rx ED Physical Exam - General Limitations: No Limitations General appearance: alert, in no apparent distress - Head Head exam: Present: atraumatic, normocephalic, normal inspection - Eye Eye exam: Present: normal appearance, PERRL, EOMI Pupils: Present: normal accommodation - Neck Neck exam: Present: normal inspection, full ROM - Respiratory Respiratory exam: Present: normal lung sounds bilaterally. Absent: respiratory distress, wheezes, rales, rhonchi, stridor - Cardiovascular Cardiovascular Exam: Present: regular rate, normal rhythm, normal heart sounds - GI/Abdominal GI/Abdominal exam: Present: soft. Absent: distended, tenderness, guarding, rebound - Extremities Exam Extremities exam: Present: full ROM, tenderness (mildly posterior left knee ), normal capillary refill, other (varicose veins noted left thigh). Absent: pedal edema, joint swelling, calf tenderness - Neurological Exam Neurological exam: Present: alert, oriented X3, CN II-XII intact, normal gait. Absent: motor sensory deficit - Psychiatric Psychiatric exam: Present: normal affect, normal mood - Skin Skin exam: Present: intact ED Course Vital Signs 06/26/21 09:38 Temperature 98.1 F Pulse Rate 90 Respiratory 20 Rate Blood Pressure 132/64 [Right] O2 Sat by Pulse 98 Oximetry ED Medical Decision Making - Radiology Data Radiology results: report reviewed Patient: PAGE HURST MR#: [id number] : 1965 Acct:[id number] Age/Sex: 56 / F ADM Date: 06/26/21 Loc: ED Attending Dr: Ordering Physician: MATHEW VIDALES Date of Service: 06/26/21 Procedure(s): VL venous duplex LE LT Accession Number(s): [id number] cc: MATHEW VIDALES DUPLEX DOPPLER LOWER EXTREMITY VEINS, LEFT INDICATION / CLINICAL INFORMATION: left calf pain. TECHNIQUE: Duplex doppler imaging was performed through the veins of the left lower extremity using venous compression and other maneuvers. COMPARISON: None available. FINDINGS: LEFT COMMON FEMORAL VEIN: Negative. LEFT FEMORAL VEIN: Negative. LEFT POPLITEAL VEIN: Negative. LEFT CALF VEINS: Negative. ADDITIONAL FINDINGS: 1.9 cm popliteal cyst. IMPRESSION: 1. No sonographic evidence for DVT in the left lower extremity. 2. 1.9 cm popliteal fossa cyst Signer Name: Dom Summers MD Signed: 06/26/2021 12:00 PM Workstation Name: [id number] Transcribed By: JOY Dictated By: DOM SUMMERS MD Electronically Authenticated By: DOM SUMMERS MD Signed Date/Time: 06/26/21 1200 DD/ 1159 TD/TT: Critical care attestation.: If time is entered above; I have spent that time in minutes in the direct care of this critically ill patient, excluding procedure time. ED Disposition Clinical Impression: Popliteal cyst, Knee pain, left Disposition: 01 HOME / SELF CARE / HOMELESS Is pt being admited?: No Does the pt Need Aspirin: No Condition: Stable Instructions: Acute Knee Pain, Adult, Pel[place]o Cyst Additional Instructions: I recommend taking the naproxen as prescribed and following up with Ortho in 1 week. Elevate your leg as often as possible to help with any swelling or pain. Return to ED if worse. Prescriptions: Naproxen 500 mg PO BID #20 tablet Referrals: LAKHWINDER ESQUIVEL MD [Staff Physician] - 7-10 days Forms: Work/School Release Form(ED) Time of Disposition: 12:09
--- NOTE | 2021-06-26 12:05 | Vascular Lab Report ---
DUPLEX DOPPLER LOWER EXTREMITY VEINS, LEFT INDICATION / CLINICAL INFORMATION: left calf pain. TECHNIQUE: Duplex doppler imaging was performed through the veins of the left lower extremity using venous compr ession and other maneuvers. COMPARISON: None available. FINDINGS: LEFT COMMON FEMORAL VEIN: Negative. LEFT FEMORAL VEIN: Negative. LEFT POPLITEAL VEIN: Negative. LEFT CALF VEINS: Negative. ADDITIONAL FINDINGS: 1.9 cm popliteal cyst. IMPRESSION: 1. No sonographic evidence for DVT in the left lower extremity. 2. 1.9 cm popliteal fossa cyst Signer Name: Wing Summers MD Signed: 06/26/2021 12:00 PM Workstation Name: [id number]
== END 2021-06-26 12:46 | disposition home or self-care (01) ==
LOC: ED 09:16
DX: M71.22 Synovial cyst of popliteal space [Baker], left knee (principal); I10 Essential (primary) hypertension; Z88.6 Allergy status to analgesic agent; Z91.013 Allergy to seafood; Z91.010 Allergy to peanuts; Z79.899 Other long term (current) drug therapy
CPT/HCPCS: 93971; 99283; J2060

== ENCOUNTER 2021-08-18 10:24 | Emergency (ER) | payer SELFPAY ==
[2021-08-18 10:58] VITALS: BP 173/84
--- NOTE | 2021-08-18 11:16 | Emergency Department Report ---
ED General Adult HPI - General Chief complaint: Eye Problems Stated complaint: RT EYE RED/NEEDS BP REFILL Time Seen by Provider: 08/18/21 10:57 Source: patient Mode of arrival: Ambulatory Limitations: No Limitations - History of Present Illness Initial comments: 56-year-old -[place] female patient presents with complaints of right eye redness and irritation x2 weeks. She reports that she has been using Visine drops and her symptoms are not improving. She does report achy pain to the eye and denies any vision changes or headache. No trauma to the eye or contact lens wearing per patient. She admits to waking up with her eye crusted shut. Patient also requesting refill of her blood pressure medication. In addition patient complains of right lower dental pain for 2 weeks. She states that she has had recurrent dental infections and is unable to afford a dental specialist. No fever/chills/sweats per patient or difficulty opening her jaw. - Related Data Previous Rx's Medication Instructions Recorded Last Taken Type Fluticasone Propionate [Flonase] 2 sprays NS QDAY #1 spray 02/25/14 Unknown Rx Ciprofloxacin HCl [Cipro] 250 mg PO BID #6 tablet 01/29/15 Unknown Rx Saccharomyces Boulardii [Florastor] 250 mg PO BID #14 capsule 01/29/15 Unknown Rx carvediloL [Coreg] 6.25 mg PO BID #60 tablet 01/29/15 Unknown Rx lisinopriL [Zestril TAB] 10 mg PO BID #60 tablet 01/29/15 Unknown Rx Acetaminophen/Codeine [Tylenol 1 tab PO Q6H PRN #12 tab 04/30/18 Unknown Rx /Codeine # 3 tab] Amoxicillin 500 mg PO TID 10 Days #30 capsule 04/30/18 Unknown Rx Clindamycin [Clindamycin CAP] 300 mg PO Q8H #21 cap 04/30/18 Unknown Rx Lisinopril/Hydrochlorothiazide 1 tab PO QDAY #30 tab 07/15/20 Unknown Rx [Zestoretic 20-25 mg] Lisinopril/Hydrochlorothiazide 1 tab PO QDAY #30 tab 09/03/20 Unknown Rx [Zestoretic 20-25 mg] Acetaminophen/Codeine [Tylenol 1 tab PO Q8H PRN #8 tab 01/22/21 Unknown Rx /Codeine # 3 tab] Clindamycin [Clindamycin CAP] 300 mg PO Q6H 10 Days #40 capsule 01/22/21 Unknown Rx Naproxen 500 mg PO BID #20 tablet 06/26/21 Unknown Rx Amoxicillin [Trimox CAP] 500 mg PO Q8H 7 Days #21 capsule 08/18/21 Unknown Rx Lisinopril/Hydrochlorothiazide 1 tab PO QDAY 30 Days #30 tab 08/18/21 Unknown Rx [Zestoretic 20-25 mg] Polymyxin B Sulf/Trimethoprim 1 drop OP Q3H 7 Days #1 drops 08/18/21 Unknown Rx [Polytrim Eye Drops] Allergies Allergy/AdvReac Type Severity Reaction Status Date / Time iodine Allergy Shortness Verified 08/18/21 10:29 of Breath nuts Allergy Shortness Uncoded 08/18/21 10:29 of Breath seafood Allergy Shortness Uncoded 08/18/21 10:29 of Breath ED Review of Systems ROS: Stated complaint: RT EYE RED/NEEDS BP REFILL Other details as noted in HPI Constitutional: denies: chills, diaphoresis, fever, malaise Eyes: eye pain, eye discharge. denies: vision change ENT: dental pain. denies: throat pain Respiratory: denies: cough, shortness of breath Cardiovascular: denies: chest pain Skin: denies: change in color Neurological: denies: headache ED Past Medical Hx - Past Medical History Hx Hypertension: Yes - Social History Smoking Status: Never Smoker Substance Use Type: None - Medications Home Medications: Home Medications Medication Instructions Recorded Confirmed Last Taken Type Fluticasone Propionate [Flonase] 2 sprays NS QDAY #1 spray 02/25/01/28/15 Unknown Rx Ciprofloxacin HCl [Cipro] 250 mg PO BID #6 tablet 01/29/15 Unknown Rx Saccharomyces Boulardii [Florastor] 250 mg PO BID #14 capsule 01/29/15 Unknown Rx carvediloL [Coreg] 6.25 mg PO BID #60 tablet 01/29/15 Unknown Rx lisinopriL [Zestril TAB] 10 mg PO BID #60 tablet 01/29/15 Unknown Rx Acetaminophen/Codeine [Tylenol 1 tab PO Q6H PRN #12 tab 04/30/18 Unknown Rx /Codeine # 3 tab] Amoxicillin 500 mg PO TID 10 Days #30 capsule 04/30/18 Unknown Rx Clindamycin [Clindamycin CAP] 300 mg PO Q8H #21 cap 04/30/18 Unknown Rx Lisinopril/Hydrochlorothiazide 1 tab PO QDAY #30 tab 07/15/20 Unknown Rx [Zestoretic 20-25 mg] Lisinopril/Hydrochlorothiazide 1 tab PO QDAY #30 tab 09/03/20 Unknown Rx [Zestoretic 20-25 mg] Acetaminophen/Codeine [Tylenol 1 tab PO Q8H PRN #8 tab 01/22/21 Unknown Rx /Codeine # 3 tab] Clindamycin [Clindamycin CAP] 300 mg PO Q6H 10 Days #40 capsule 01/22/21 Unknown Rx Naproxen 500 mg PO BID #20 tablet 06/26/21 Unknown Rx Amoxicillin [Trimox CAP] 500 mg PO Q8H 7 Days #21 capsule 08/18/21 Unknown Rx Lisinopril/Hydrochlorothiazide 1 tab PO QDAY 30 Days #30 tab 08/18/21 Unknown Rx [Zestoretic 20-25 mg] Polymyxin B Sulf/Trimethoprim 1 drop OP Q3H 7 Days #1 drops 08/18/21 Unknown Rx [Polytrim Eye Drops] ED Physical Exam - General Limitations: No Limitations General appearance: alert, in no apparent distress - Head Head exam: Present: atraumatic, normocephalic - Eye Eye exam: Present: PERRL, EOMI, conjunctival injection (Right). Absent: periorbital swelling, periorbital tenderness - Expanded ENT Exam Expanded Mouth exam: Absent: drooling, trismus Teeth exam: Present: dental caries (Severe diffuse dental decay) 1 - Dental Tenderness (Right lower dental with surrounding erythema; no overlying facial swelling noted) - Neck Neck exam: Present: normal inspection - Respiratory Respiratory exam: Absent: respiratory distress - Cardiovascular Cardiovascular Exam: Present: regular rate ED Course Vital Signs 08/18/21 10:28 Temperature 97.8 F Pulse Rate 90 Respiratory 18 Rate Blood Pressure 173/84 O2 Sat by Pulse 99 Oximetry ED Medical Decision Making - Medical Decision Making 56-year-old -[place] female patient presents with complaints of right eye redness and irritation x2 weeks. She reports that she has been using Visine drops and her symptoms are not improving. She does report achy pain to the eye and denies any vision changes or headache. No trauma to the eye or contact lens wearing per patient. She admits to waking up with her eye crusted shut. Patient also requesting refill of her blood pressure medication. In addition patient complains of right lower dental pain for 2 weeks. She states that she has had recurrent dental infections and is unable to afford a dental specialist. No fever/chills/sweats per patient or difficulty opening her jaw. Refill given of lisinopril/hydrochlorothiazide. We will treat for right ba cterial conjunctivitis with polymyxin drops. Amoxil given for dental infection. Patient provided with dental specialist list and informed to follow-up within 2 to 3 days. She is otherwise well-appearing and stable for discharge home. Strict return precautions discussed in detail patient who verbalizes understanding. Critical care attestation.: If time is entered above; I have spent that time in minutes in the direct care of this critically ill patient, excluding procedure time. ED Disposition Clinical Impression: Acute bacterial conjunctivitis of right eye, Dental infection, Medication refill Disposition: 01 HOME / SELF CARE / HOMELESS Is pt being admited?: No Condition: Stable Instructions: Dental Abscess, Bacterial Conjunctivitis, Adult, [id number] Prescriptions: Polymyxin B Sulf/Trimethoprim [Polytrim Eye Drops] 1 drop OP Q3H 7 Days #1 drops Amoxicillin [Trimox CAP] 500 mg PO Q8H 7 Days #21 capsule Lisinopril/Hydrochlorothiazide [Zestoretic 20-25 mg] 1 tab PO QDAY 30 Days #30 tab Referrals: [facility] [Provider Group] - 3-5 Days
== END 2021-08-18 11:50 | disposition home or self-care (01) ==
LOC: ED 10:24
DX: H10.31 Unspecified acute conjunctivitis, right eye (principal); K04.7 Periapical abscess without sinus; Z76.0 Encounter for issue of repeat prescription; Z88.6 Allergy status to analgesic agent; Z91.013 Allergy to seafood; Z91.010 Allergy to peanuts; Z79.899 Other long term (current) drug therapy
CPT/HCPCS: 99282

== ENCOUNTER 2022-06-06 21:34 | Emergency (ER) | payer SELFPAY ==
[2022-06-06] MEDS ORDERED: FAMOTIDINE 20 MG/2 ML INJ IV ONE (21:48)
[2022-06-06] MEDS ORDERED: diphenhydrAMINE 50 MG/ML VIAL IV ONE (21:48)
[2022-06-06] MEDS ORDERED: methylPREDNISolone Sod Succinate 125 MG/2 ML INJ IV ONE (21:48)
--- NOTE | 2022-06-06 21:50 | Emergency Department Report ---
HPI - General Chief Complaint: Allergic Reaction Time Seen by Provider: 06/06/22 21:44 - HPI HPI: 57-year-old female with a past medical history of multiple food allergies (seafood, nuts, and also iodine) presents to the hospital with complaints of acute allergic reaction after eating fish. Patient thought that she was eating chicken however, she took 1 bite of the fish and immediately began to have allergic symptoms. She complains of shortness of breath and feeling like her throat is swollen. She has some right sided facial swelling secondary to a tooth infection. No meds taken prior to arrival. No aggravating leaving factors reported ED Past Medical Hx - Past Medical History Hx Hypertension: Yes - Social History Smoking Status: Never Smoker Substance Use Type: None - Medications Home Medications: Home Medications Medication Instructions Recorded Confirmed Last Taken Type Fluticasone Propionate [Flonase] 2 sprays NS QDAY #1 spray 02/25/14 01/28/15 Unknown Rx Ciprofloxacin HCl [Cipro] 250 mg PO BID #6 tablet 01/29/15 Unknown Rx Saccharomyces Boulardii [Florastor] 250 mg PO BID #14 capsule 01/29/15 Unknown Rx carvediloL [Coreg] 6.25 mg PO BID #60 tablet 01/29/15 Unknown Rx lisinopriL [Zestril TAB] 10 mg PO BID #60 tablet 01/29/15 Unknown Rx Acetaminophen/Codeine [Tylenol 1 tab PO Q6H PRN #12 tab 04/30/18 Unknown Rx /Codeine # 3 tab] Amoxicillin 500 mg PO TID 10 Days #30 capsule 04/30/18 Unknown Rx Lisinopril/Hydrochlorothiazide 1 tab PO QDAY #30 tab 07/15/20 Unknown Rx [Zestoretic 20-25 mg] Lisinopril/Hydrochlorothiazide 1 tab PO QDAY #30 tab 09/03/20 Unknown Rx [Zestoretic 20-25 mg] Acetaminophen/Codeine [Tylenol 1 tab PO Q8H PRN #8 tab 01/22/21 Unknown Rx /Codeine # 3 tab] Clindamycin [Clindamycin CAP] 300 mg PO Q6H 10 Days #40 capsule 01/22/21 Unknown Rx Naproxen 500 mg PO BID #20 tablet 06/26/21 Unknown Rx Amoxicillin [Trimox CAP] 500 mg PO Q8H 7 Days #21 capsule 08/18/21 Unknown Rx Lisinopril/Hydrochlorothiazide 1 tab PO QDAY 30 Days #30 tab 08/18/21 Unknown Rx [Zestoretic 20-25 mg] Polymyxin B Sulf/Trimethoprim 1 drop OP Q3H 7 Days #1 drops 08/18/21 Unknown Rx [Polytrim Eye Drops] Clindamycin [Clindamycin CAP] 300 mg PO Q8H #30 cap 06/07/22 Unknown Rx EPINEPHrine [Epipen] 0.3 mg IJ ONCE PRN #1 pen 06/07/22 Unknown Rx Famotidine [Pepcid] 20 mg PO BID #10 tablet 06/07/22 Unknown Rx diphenhydrAMINE [Benadryl CAP] 25 mg PO Q6HR PRN #20 capsule 06/07/22 Unknown Rx predniSONE [Deltasone] 40 mg PO QDAY #10 tab 06/07/22 Unknown Rx ED Review of Systems ROS: Stated complaint: ALLERGIC REACTION Other details as noted in HPI Comment: All other systems reviewed and negative Physical Exam - Physical Exam Vital Signs: Vital Signs 06/06/22 21:39 Temperature 98.3 F Pulse Rate 111 H Respiratory 20 Rate Blood Pressure 145/82 O2 Sat by Pulse 99 Oximetry Physical Exam: General: No acute distress Head: Atraumatic Eyes: normal appearance ENT: Moist mucous membranes, no tongue swelling, mild right sided face swelling secondary to dental infection. Patient has multiple dental caries Neck: Normal appearance, no midline tenderness, no stridor Chest: Clear to auscultation bilaterally, no wheezing CV: Tachycardia, regular rhythm Abdomen: Soft, normal bowel sounds, nontender, nondistended, no rebound or guarding Back: Normal inspection Extremity: Normal inspection, full range of motion Neuro: Alert O x 3, no facial asymmetry, speech clear, no gross motor sensory deficit Psych: Appropriate behavior Skin: No rash ED Course Vital Signs 06/06/22 21:39 Temperature 98.3 F Pulse Rate 111 H Respiratory 20 Rate Blood Pressure 145/82 O2 Sat by Pulse 99 Oximetry - Reevaluation(s) Reevaluation #1: 06/07/22 01:31 Patient reports improved symptoms with ED treatment. She received IV Benadryl, Pepcid, Solu-Medrol and reports improving symptoms. 06/07/22 02:15 Patient was prepped for discharge. Now she is stating that she feels like her throat is swollen again. She does not have any hoarseness. Additional Benadryl ordered. Benadryl ordered. We will continue to observe 06/07/22 05:56 Patient feeling much better with additional meds and observation and feels back to baseline and will be discharged ED Medical Decision Making - Medical Decision Making Patient symptoms improved with ED treatment. She has a known history of seafood allergy including fish and ate fish prior to arrival. Symptoms improved with ED treatment and patient observed for several hours without exacerbation of symptoms. She will be discharged on medications for acute allergic reaction - Differential Diagnosis Food allergy Critical Care Time: No Critical care attestation.: If time is entered above; I have spent that time in minutes in the direct care of this critically ill patient, excluding procedure time. ED Disposition Clinical Impression: Acute allergic reaction, Food allergy, Dental abscess Disposition: 01 HOME / SELF CARE / HOMELESS Is pt being admited?: No Does the pt Need Aspirin: No Condition: Fair Instructions: Food Allergy Additional Instructions: Take the medication as prescribed. Follow-up with your doctor or doctor/clinic provided. Return if symptoms worsen as indicated by your discharge instructions. Prescriptions: diphenhydrAMINE [Benadryl CAP] 25 mg PO Q6HR PRN #20 capsule PRN Reason: Allergic Reaction Clindamycin [Clindamycin CAP] 300 mg PO Q8H #30 cap predniSONE [Deltasone] 40 mg PO QDAY #10 tab EPINEPHrine [Epipen] 0.3 mg IJ ONCE PRN #1 pen PRN Reason: Anaphylaxis Famotidine [Pepcid] 20 mg PO BID #10 tablet Referrals: YUE HOWARD MD [Primary Care Provider] - 3-5 Days Time of Disposition: 05:56
[2022-06-07] MEDS ORDERED: dexAMETHasone 20 MG/5 ML VIAL IV ONE (02:15)
[2022-06-07] MEDS ORDERED: diphenhydrAMINE 50 MG/ML VIAL IV ONE (02:16)
[2022-06-07 06:08] VITALS: BP 148/83
== END 2022-06-07 06:05 | disposition home or self-care (01) ==
LOC: ED 21:34
DX: T78.1XXA Other adverse food reactions, not elsewhere classified, initial encounter (principal); X58.XXXA Exposure to other specified factors, initial encounter; K04.7 Periapical abscess without sinus; I10 Essential (primary) hypertension
CPT/HCPCS: 96374; 96375; 96376; 99282; J1100; J1200; J2930; J3490